=== PATIENT | male | born 1960 | race Caucasian/White ===

== ENCOUNTER 2024-10-26 07:04 | Emergency (ER) | payer OTHER, SELFPAY ==
[2024-10-26] VITALS (8 sets, daily range): BP systolic 131–157; BP diastolic 65–96; PULSE 57–95; RESP 13–18; TEMP 36.4–36.9; O2SAT 97–98; BMI 20.3
--- NOTE | 2024-10-26 07:08 | ECG_ITS ---
APPROVED REPORT Exam: Resting ECG HR:75 bpm ECG Measurements Heart Rate 75 AXES ND 148 P 70 QRSd 105 QRS 59 QT 390 T 72 QTc 418 Conclusion SINUS RHYTHM NORMAL ECG UNCONFIRMED REPORT Electronically signed by : MIRELA JIANG, 10/28/2024 06:36:03
--- NOTE | 2024-10-26 07:20 | ED_ITS ---
Discharge Plan Disposition Chief Complaint: Psychiatric Symptoms Referrals Follow up/Referrals: Provider,Referral, [Primary Care Provider, Medical] - See instructions Clinical Impressions Clinical Impression: Suicidal ideation Print Language Print Language: Maltese Discharge ED Provider: Leila Claudio General Adult HPI General Chief complaint: Psychiatric Symptoms Stated complaint: Fatigue, Loss weight, Rashes Time Seen by Provider: 10/26/24 07:20 History of Present Illness HPI narrative: Patient is a 64-year-old with past medical history significant for marijuana use and tobacco use presents to the emergency department for altered mental status. History obtained per patient and family. Per patient he says that he has slept for approximately 10 hours of the last 2 weeks. Patient works refinery operator vapor recovery unit at [employer] until he fractured his foot in late September when he had a colonoscopy and felt weak due to the bowel cleanout and since then has been on short-term disability. Family reports that he has not been eating and has visibly lost weight since then. Family reports patient is very stressed about finances. Patient reports that he is going to because something is wrong. He is fixated on a rash on his foot and both of his hands that has been present this morning. Patient denies auditory or visual hallucinations. Sister brought patient in this morning because patient called her in the middle the night saying that he has to go to the hospital because he is going to . Positive suicidal ideation with plan to drown himself into a river or walk in traffic. Related Data Allergies Allergy/AdvReac Type Severity Reaction Status Date / Time Penicillins Allergy Hives Verified 10/26/24 07:43 [facility] Disclaimer: The information contained in this section may have been updated after the patient was seen, as this information can be updated by other users. Social History Smoking Status: Never smoker alcohol intake: never current occupational status: other Travel in the last 8 weeks?: None ROS Obtained: Yes All systems reviewed & no additional complaints except as documented Physical Exam General General appearance: alert, anxious and cachectic Head Head exam: atraumatic Eye Eye exam: Present PERRL ENT ENT exam: Present normal oropharynx Chest Chest inspection: Present normal inspection, symmetric chest wall rise and tenderness Respiratory Respiratory exam: Present normal lung sounds bilaterally; Absent respiratory distress Cardiovascular Cardiovascular exam: Present regular rate and normal rhythm Abdominal Exam Abdominal exam: Present soft; Absent distention or tenderness Extremities Exam Extremities exam: Present normal inspection; Absent edema or joint swelling Neurological Exam Neurological exam: Present alert, oriented X3, CN II-XII intact and normal gait; Absent motor sensory deficit Psychiatric Psychiatric exam: Present anxious, manic and suicidal ideation Expanded Psychiatric Exam Expanded psych exam: Present poor eye contact, pressured speech and paranoid Skin Skin exam: Present warm and dry; Absent rash, diaphoresis or erythema Medical Decision Making Medical Records Screening: Per USPSTF and CDC recommendations, given the prevalence of disease in our region, it is our hospital?s policy to screen for HIV and viral Hepatitis for all patients aged 18 and over and those with ongoing risk factors. Nathan Inquiry Pt receiving controlled substance: No Vital Signs: 10/26/24 07:21 10/26/24 07:30 10/26/24 07:41 Temperature 98.5 F 98.5 F Temperature Source Oral Oral Pulse Rate 83 95 H Pulse Rate [Right] 95 H Respiratory Rate 17 18 17 Blood Pressure 157/91 H 155/84 H Blood Pressure [Right Arm] 155/84 H Blood Pressure Mean 112 Blood Pressure Mean [Right Arm] 107 Blood Pressure Source Automatic Cuff Blood Pressure Source [Right Arm] Automatic Cuff Blood Pressure Position Supine Blood Pressure Position [Right Arm] Supine 02 Sat by Pulse Oximetry 98 98 98 Oxygen Delivery Method Room Air Room Air 10/26/24 08:15 10/26/24 09:19 10/26/24 10:16 Temperature 98.0 F Temperature Source Pulse Rate 70 66 68 Pulse Rate [Right] Respiratory Rate 18 13 15 Blood Pressure 153/83 H 131/72 140/96 H Blood Pressure [Right Arm] Blood Pressure Mean 106 Blood Pressure Mean [Right Arm] Blood Pressure Source Blood Pressure Source [Right Arm] Blood Pressure Position Blood Pressure Position [Right Arm] 02 Sat by Pulse Oximetry 97 98 98 Oxygen Delivery Method Room Air Lab Data Lab Results 10/26/24 08:07: WBC 6.7, RBC 4.64, Hgb 15.0, Hct 41.5 L, MCV 89.4, MCH 32.3 H, M CHC 36.1 H, RDW 12.1, Plt Count 233, MPV 9.6, Neut % (Auto) 69.4, Lymph % (Auto) 22.0, [place] % (Auto) 6.1, Eos % (Auto) 1.8, Baso % (Auto) 0.6, Neut # (Auto) 4.6, Lymph # (Auto) 1.5, [place] # (Auto) 0.4, Eos # (Auto) 0.1, Baso # (Auto) 0.0, VBG pH 7.39, VBG pCO2 41.2, VBG pO2 43.4 H, VBG HCO3 24.2, VBG Total CO2 25.4, VBG O2 Saturation 80.2 H, VBG Base Excess -0.9, VBG Lactic Acid 1.5, Sodium 141, Potassium 3.5, Chloride 101, Carbon Dioxide 29, Anion Gap 14.5, BUN 9, Creatinine 0.70, Estimated Creat Clear 68, Estimated GFR 114, Est GFR ( Amer) 138, Glucose 124 H, Calcium 9.3, Phosphorus 3.3, Magnesium 2.2, Total Bilirubin 1.9 H, AST 24, ALT 30, Alkaline Phosphatase 69, Total Creatine Kinase 105, Total Protein 7.7, Albumin 4.8, Globulin 2.9, Albumin/Globulin Ratio 1.7, Lipase 72, TSH 0.69, Thyroxine (T4) 10.2, Salicylates < 1.0 L, Acetaminophen < 10 L, Plasma/Serum Alcohol < 10, HCV Ab CARLOS w/Rflx PCR Qn Negative, HIV Ag/Ab Combo Qual Negative 10/26/24 09:22: Urine Opiates Screen Negative, Urine Methadone Screen Negative, Ur Barbituates Screen Negative, Ur Phencyclidine Scrn Negative, Ur Amphetamines Screen Negative, U Benzodiazepines Scrn Negative, Urine Cocaine Screen Negative, U Marijuana (THC) Screen Positive H 10/26/24 08:07 10/26/24 08:07 Orders (Tests/Meds): ED MEDICATIONS Discontinued Medications Generic Name Dose Route Start Last Admin Trade Name Freq PRN Reason Stop Dose Admin Droperidol 5 mg 10/26/24 07:32 10/26/24 08:52 Droperidol 5mg/2ml Vial IV 10/26/24 07:33 5 mg ONCE ONE Administration Lactated Ringer's 1,000 mls @ 999 mls/hr 10/26/24 07:32 10/26/24 08:52 Lactated Ringer's 1000 Ml Bag IV 10/26/24 08:32 999 mls/hr .Q1H1M ONE Administration ORDERS Category Date Time Status CT head/brain wo con Stat Cat Scan 10/26/24 07:32 Completed Consult to Behavioral Health [CONS] Stat Cons 10/26/24 07:44 Active Acetaminophen Stat Lab 10/26/24 08:07 Completed Complete Blood Count Auto Diff Stat Lab 10/26/24 08:07 Completed Comprehensive Metabolic Panel Stat Lab 10/26/24 08:07 Completed Creatine Kinase Stat Lab 10/26/24 08:07 Completed Drug Screen,Urine Stat Lab 10/26/24 09:22 Completed Ethyl Alcohol Stat Lab 10/26/24 08:07 Completed HIV Combo Stat Lab 10/26/24 08:07 Completed Hepatitis C Ab Qual. W/ RFX Stat Lab 10/26/24 08:07 Completed Lipase Stat Lab 10/26/24 08:07 Completed Magnesium Stat Lab 10/26/24 08:07 Completed Phosphorous Stat Lab 10/26/24 08:07 Completed Salicylate Stat Lab 10/26/24 08:07 Completed T4 (Thyroxine) Stat Lab 10/26/24 08:07 Completed Thyroid Stimulating Hormone Stat Lab 10/26/24 08:07 Completed Venous Blood Gas Stat RT 10/26/24 08:07 Completed ECG Request Stat Y 10/26/24 07:32 Ordered Medical Decision Narrative: In summary, this 64-year-old male presents to the emergency department today with altered mental status. On initial evaluation patient is hemodynamically stable saturating appropriately on room air afebrile in no acute distress but a danger to himself and others. Differential diagnosis includes but is not limited to acute intoxication or withdrawal, psychosis renetta sleep deprivation acute stress reaction intracranial tumor electrolyte derangement or rhabdomyolysis. Based on these concerns, I ordered CT head aspirin salicylate and alcohol level CBC CK lipase magnesium phosphorus TSH T4 drugs abuse screen. ECG personally interpreted demonstrates normal sinus rhythm no ST elevation ST depression or T wave inversions concerning for ischemia Patient received droperidol and 1 L of LR for treatment. Labs personally reviewed demonstrate glucose appropriate, no leukocytosis, negative tylenol/salicylate/alcohol. UDS positive for marijuana. CT imaging personally interpreted demonstrate no intracranial hemorrhage or mass. Concerned for acute renetta and suicidal ideation with plan. Medically cleared at this time. Psychiatry at [facility] consulted with recommendations to admit to their facility. Accepting physician Dr. Jo . Critical Care Critical Care Time Critical Care Time: No
--- NOTE | 2024-10-26 07:25 | PC.NURSE ---
comes out to nurses station and states that we need to start process of psych evaluation for pt. pt did not report SI/HI ideation to nurse when doing triage. spoke with pt and after her assessment, states that pt is manic, having pressured speech, suicide ideation. process started for pt to have psych evaluation.
--- NOTE | 2024-10-26 07:32 | CT_ITS ---
PROCEDURE INFORMATION: Exam: CT Head Without Contrast Exam date and time: 10/26/2024 7:43 AM Age: 64 years old Clinical indication: Altered mental status/memory loss; Additional info: AMS TECHNIQUE: Imaging protocol: Computed tomography of the head without contrast. Radiation optimization: All CT scans at this facility use at least one of these dose optimization techniques: automated exposure control; mA and/or kV adjustment per patient size (includes targeted exams where dose is matched to clinical indication); or iterative reconstruction. COMPARISON: No relevant prior studies available. FINDINGS: Brain: There is no evidence of acute parenchymal hemorrhage, extra-axial collection, or acute infarction. There is no mass effect, midline shift, or downward herniation. Cerebral ventricles: No ventriculomegaly. Paranasal sinuses: Visualized sinuses are unremarkable. No fluid levels. Mastoid air cells: Visualized mastoid air cells are well aerated. Bones: Unremarkable. No acute fracture. Soft tissues: Unremarkable. IMPRESSION: No acute intracranial abnormality.
--- NOTE | 2024-10-26 07:44 | PC.NURSE ---
Pt to RAD @ this time
[2024-10-26 08:21] LABS: Basophils % 0.6 % (0.1-2.0); Eosinophils # 0.1 Kmm3 (0.0-0.4); Eosinophils % 1.8 % (0.1-12.0); Hematocrit 41.5 % (42.0-52.0); Immature Granulocytes # 0.01 10^3uL; Immature Granulocytes % 0.1 %; Lymphocytes # 1.5 K/mm3 (0.7-4.5); Mean Corpuscular HGB Conc 36.1 g/dL (31.8-35.4); Mean Corpuscular Hemoglobin 32.3 pg (27.0-31.2); Mean Corpuscular Volume 89.4 fl (80-94); Mean Platelet Volume 9.6 fl (7.4-10.4); Monocytes # 0.4 K/mm3 (0.1-1.0); Monocytes % 6.1 % (1.7-9.3); Neutrophils # 4.6 K/mm3 (1.8-7.8); Neutrophils % 69.4 % (37.0-80.0); Nucleated Red Blood Cells # 0 10^3/uL; Nucleated Red Blood Cells % 0 %; Platelet Count 233 K/mm3 (142-424); Red Blood Count 4.64 M/mm3 (4.60-6.20); Red Cell Distribution Width 12.1 % (11.5-17.5); Red Cell Distribution Width-SD 39.8 fL; White Blood Count 6.7 K/mm3 (4.8-10.8)
[2024-10-26 08:33] LABS: Albumin Level 4.8 g/dl (3.5-5.0); Chloride 101 mmol/L (98-107); Sodium 141 mmol/L (136-145)
[2024-10-26 08:34] LABS: Potassium 3.5 mmoL/L (3.5-5.1)
[2024-10-26 08:36] LABS: Alanine Aminotransferase 30 U/L (12-78); Albumin/Globulin Ratio 1.7 (1.1-1.8); Alkaline Phosphatase 69 U/L (38-126); Anion Gap 14.5 mEq/L (5-15); Aspartate Amino Transferase 24 U/L (17-59); Bilirubin,Total 1.9 mg/dl (0.2-1.3); Blood Urea Nitrogen 9 mg/dl (9-20); Calcium 9.3 mg/dl (8.4-10.2); Carbon Dioxide 29 mmol/L (22.0-30.0); Creatine Kinase 105 U/L (55-170); Creatinine Clearance Estimated 68 mL/min (50-200); Estimated Glomerular Filt Rate 114 ml/min (>60); GFR (African American) 138 ML/MIN (>60); Globulin 2.9 g/dL (1.3-3.2); Glucose 124 mg/dl (74-100); Lactate Venous 1.5 mmol/L (0.4-2.0); Lipase 72 U/L (23-300); Total Protein,Serum 7.7 g/dl (6.3-8.2); VBG Base Excess -0.9 mmol/L (-2.4-2.3); VBG HCO3 24.2 mmol/L (23-30); VBG Oxygen Saturation 80.2 % (50-70); VBG PCO2 41.2 mmol/L (35-51); VBG PH 7.39 mmol/L (7.31-7.41); VBG PO2 43.4 mmol/L (28-40); VBG Total CO2 25.4 mmol/L (23-27)
[2024-10-26 08:37] LABS: Magnesium 2.2 mg/dl (1.6-2.3); Phosphorous 3.3 mg/dl (2.5-4.5)
[2024-10-26 08:38] LABS: Acetaminophen < 10 ug/ml (10-30); Salicylate < 1.0 mg/dL (2.0-20.0)
[2024-10-26] MEDS: droPERidol 5MG/2ML VIAL 5 MG IV (08:52)
[2024-10-26] MEDS: LACTATED RINGERS 1000ML 1,000 ML 999 ML IV (08:52)
[2024-10-26 08:54] LABS: T4 (Thyroxine) 10.2 ug/dl (5.53-11.0)
--- NOTE | 2024-10-26 09:05 | PC.NURSE ---
I called and spoke with Teagan ARMAS at the [facility] transfer center. She states due to it being the weekend they do not admit inpatient psych. The earliest would be Sunday. She gave permission to reach out to other psychiatric care centers. She states we will still be contacted by the [facility] but we do not need to wait for contact from them to contact other facilities.
[2024-10-26 09:07] LABS: Thyroid Stimulating Hormone 0.69 uIU/mL (0.465-4.68)
--- NOTE | 2024-10-26 09:15 | PC.NURSE ---
Bryon Yuan at [facility] for pt admit voluntary for 72 hour hold.
[2024-10-26 09:17] LABS: Ethyl Alcohol < 10 mg/dl (0-10)
--- NOTE | 2024-10-26 09:23 | PC.NURSE ---
took pt to the restroom and back
--- NOTE | 2024-10-26 09:29 | PC.NURSE ---
went to restroom with pt and back to room
[2024-10-26 09:41] LABS: Amphetamine/Metha Screen,Urine Negative ng/ml (<1000); Benzodiazepines Screen,Urine Negative ng/ml (<200)
[2024-10-26 09:42] LABS: Cannabinoid Screen,Urine Positive ng/ml (<50)
[2024-10-26 09:43] LABS: HIV Combo NEGATIVE (Negative)
[2024-10-26 09:43] LABS: Cocaine Screen,Urine Negative ng/ml (<300); Methadone Screen,Urine Negative ng/ml (<300)
[2024-10-26 09:44] LABS: Opiate Screen,Urine Negative ng/ml (<300)
[2024-10-26 09:45] LABS: Phencyclidine Screen,Urine Negative ng/ml (<25)
[2024-10-26 09:47] LABS: Barbiturates Screen,Urine Negative ng/ml (<200)
--- NOTE | 2024-10-26 09:49 | PC.NURSE ---
pt to the restroom and back with tech
[2024-10-26 09:50] LABS: Hepatitis C Ab Qual. W/ RFX NEGATIVE (Negative)
--- NOTE | 2024-10-26 10:46 | PC.NURSE ---
Brittnee RN speaking with [facility] intake nurse.
--- NOTE | 2024-10-26 10:54 | PC.NURSE ---
Spoke with Lillian at [facility] with pt admit acceptance by Dr. Jo
--- NOTE | 2024-10-26 11:15 | PC.NURSE ---
Called report to CARLEY Loo at [facility].
== END 2024-10-26 11:47 ==
PROVIDERS: Emergency Provider Student in an Organized Health Care Education/Training Program
DX: R45.851 Suicidal ideations (principal); R53.83 Other fatigue; R63.4 Abnormal weight loss
CPT/HCPCS: 70450; 80053; 80307; 80320; 80329; 82550; 82803; 83690; 83735; 84100; 84436; 84443; 85025; 86803; 87389; 93005; 96361; 96374; 99285; J1790; J7120